=== PATIENT | male | born 2005 | race Caucasian/White ===

== ENCOUNTER 2024-04-17 14:12 | Emergency (ER) | payer SELFPAY ==
[2024-04-17 14:27] VITALS: BP 143/71; PULSE 76; RESP 16; TEMP 36.8; O2SAT 99
--- NOTE | 2024-04-17 14:49 | W.ED.SPORTPH ---
[facility] Past Medical History Medical History (Updated 04/17/24 @ 14:51 by Marilynn Mcgraw, [facility], ) History of concussion Comments patient reports swollen lymph nodes in bilateral posterior neck x6 months. Clear for sports but recommended PCP follow up for evaluation of lymph nodes. Allergies: Allergies Allergy/AdvReac Type Severity Reaction Status Date / Time No Known Allergies Allergy Verified 04/17/24 14:28 Vital Signs: Vital Signs Temperature 98.2 F 04/17/24 14:27 Pulse Rate 76 04/17/24 14:27 Respiratory Rate 16 04/17/24 14:27 Blood Pressure 143/71 H 04/17/24 14:27 Pulse Oximetry 99 04/17/24 14:27 Oxygen Delivery Room Air 04/17/24 14:27 Temperature 98.2 F 04/17/24 14:27 Pulse Rate 76 04/17/24 14:27 Respiratory Rate 16 04/17/24 14:27 Blood Pressure 143/71 H 04/17/24 14:27 Pulse Oximetry 99 04/17/24 14:27 Oxygen Delivery Room Air 04/17/24 14:27 Reviewed Services Provided Sports Physical Completed: Louis Rodarte was seen today, 04/17/24, for a sports physical. The paper physical form was completed and scanned into the chart. The original paper physical form was given to the patient for submission to their school. Discharge Plan Discharge Clinical Impression: Sports physical Patient Disposition: Home, Self-Care Condition: Stable Instructions: Lymphadenopathy (ED) Additional Instructions: You have been cleared for sports. Please follow-up with your PCP regarding your swollen lymph nodes in your neck. Your blood pressure was elevated above 120/80 today at Urgent Care. This puts you above the threshold for follow up. Please schedule a followup visit with your personal physician as soon as possible, for further evaluation and treatment. Even blood pressure exceeding 120/80 may indicate pre-hypertension. Follow-up/Referrals: Albert,MD [place] [Primary Care Provider] - Time of Disposition: 14:51
== END 2024-04-17 14:54 | disposition home or self-care (01) ==
PROVIDERS: Emergency Provider Nurse Practitioner; PCP Pediatrics
DX: Z02.5 Encounter for examination for participation in sport (principal)
CPT/HCPCS: 99199